=== PATIENT | male | born 1980 | race Caucasian/White ===

== ENCOUNTER 2016-10-31 19:29 | Emergency (ER) | payer BC ==
--- NOTE | 2016-10-31 19:35 | UC ---
Ear Complaint HPI - HPI Summary HPI Summary: 36 year old male presents with right ear pain and cerumen impaction. - History of Current Complaint Stated Complaint: RIGHT EAR COMPLAINT Time Seen by Provider: 10/31/16 19:34 - Allergies/Home Medications Allergies/Adverse Reactions: Allergies Allergy/AdvReac Type Severity Reaction Status Date / Time No Known Allergies Allergy Verified 10/31/16 19:43 PMH/Surg Hx/FS Hx/Imm Hx - Surgical History Surgical History: None - Social History Alcohol Use: None Substance Use Type: None Smoking Status (MU): Former Smoker When Did the Patient Quit Smoking/Using Tobacco: 9 YRS AGO Review of Systems Constitutional: Negative Skin: Negative Eyes: Negative ENT: Ear Ache Respiratory: Negative Cardiovascular: Negative Gastrointestinal: Negative Genitourinary: Negative Motor: Negative Neurovascular: Negative Musculoskeletal: Negative Neurological: Negative Psychological: Negative All Other Systems Reviewed And Are Negative: Yes Physical Exam Triage Information Reviewed: Yes Eye Exam: Normal ENT Exam: Normal ENT: Positive: Other: - right ear cerumen impaction right external ear canal erythema Dental Exam: Normal Neck exam: Normal Neck: Positive: 1 Respiratory Exam: Normal Cardiovascular Exam: Normal Abdominal Exam: Normal Musculoskeletal Exam: Normal Neurological Exam: Normal Psychological Exam: Normal Skin Exam: Normal Ear Complaint Course/Dx - Differential Dx/Diagnosis Provider Diagnoses: right ear cerumen impaction. right otitis externa Discharge - Discharge Plan Condition: Stable Disposition: HOME Prescriptions: Neomyc/Polym/HC 1% OTIC SUSP* [Cortisporin Otic Susp 1%*] 4 drop RIGHT EAR QID # 1 btl Patient Education Materials: Cerumen Impaction (ED), Earache (ED) Referrals: No Primary Care Phys,NOPCP [Primary Care Provider] -
== END 2016-10-31 20:03 | disposition home or self-care (01) ==
LOC: UCCORT 19:29
DX: H61.21 Impacted cerumen, right ear (principal); H60.8X1 Other otitis externa, right ear
CPT/HCPCS: 99213; G0463

== ENCOUNTER 2017-12-09 10:04 | Emergency (ER) | payer BC ==
[2017-12-09 10:49] VITALS: BP 135/82
--- NOTE | 2017-12-09 12:06 | UC ---
Lower Extremity/Ankle HPI - HPI Summary HPI Summary: PT NOTED SOME SORENESS TO THE FRONT OF HIS RIGHT ANKLE THIS AM WITH SOME TINGLING JUST BELOW THE SITE. HE HAS BEEN WEARING NEW WORKS BOOTS THAT ARE TIGHT OVER THE AREA. HE NOTES IT IS FEELING BETTER NOW THAT HE IS WEARING SNEAKERS. NO HX OF INJURY. ADMITS TO A CHRONIC RASH TO BOTH FEET THE COME AND GOES FOR YEARS BUT DENIES ANYTHING NEW OR DIFFERENT. - History of Current Complaint Chief Complaint: UCLowerExtremity Stated Complaint: RIGHT LEG CONCERN Time Seen by Provider: 12/09/17 12:00 Hx Obtained From: Patient Pain Intensity: 5 Aggravating Factor(s): Other - pressure over site Alleviating Factor(s): Nothing - removing boots captain waiter/waitress Able to Bear Weight: Yes - Allergies/Home Medications Allergies/Adverse Reactions: Allergies Allergy/AdvReac Type Severity Reaction Status Date / Time No Known Allergies Allergy Verified 12/09/17 10:46 PMH/Surg Hx/FS Hx/Imm Hx Previously Healthy: Yes - Surgical History Surgical History: None - Family History Known Family History: Positive: Diabetes - Social History Occupation: Employed Full-time Alcohol Use: None Substance Use Type: None Smoking Status (MU): Former Smoker When Did the Patient Quit Smoking/Using Tobacco: 11 YRS AGO - Immunization History Vaccination Up to Date: Yes Review of Systems Constitutional: Negative Skin: Rash - feet x years Eyes: Negative ENT: Negative Respiratory: Negative Cardiovascular: Negative Gastrointestinal: Negative Genitourinary: Negative Motor: Negative Neurovascular: Negative Musculoskeletal: Other: - discomfort R anterior ankle Neurological: Negative Psychological: Negative Is Patient Immunocompromised?: No All Other Systems Reviewed And Are Negative: Yes Physical Exam Triage Information Reviewed: Yes Appearance: Well-Appearing Vital Signs: Initial Vital Signs Temp 98.5 F 12/09/17 10:42 Pulse 84 12/09/17 10:42 Resp 14 12/09/17 10:42 BP 135/82 12/09/17 10:42 Pulse Ox 99 12/09/17 10:42 Vital Signs Reviewed: Yes Eyes: Positive: Conjunctiva Clear ENT: Positive: Normal ENT inspection Neck: Positive: Supple, Nontender, No Lymphadenopathy Respiratory: Positive: Lungs clear, Normal breath sounds Cardiovascular: Positive: RRR, No Murmur Abdomen Description: Positive: Nontender, No Organomegaly, Soft Bowel Sounds: Positive: Present Musculoskeletal: Positive: Other: - RLE: hip, knee, ankle have no gross deformity, swelling or discoloration. no tenderness to palpation. Skin Exam: Normal, Other - Both feet have a dry scaley rash and some areas that look to be healing excoriated vesicles. No drainage, deep erythema or warmth and non tender. Feet have full s/v/m functions. Lower Extremity Course/Dx - Course Course Of Treatment: Hx and exam supports soft tissue tenderness R anterior ankle from boots. Rash on feet raises concern for fungal infection and dyshydrotic eczema. since rash on/off x years will refer to dermatology and tx with lotrisone. no concern for bacterial infection. tingling in foot resolved since boot removed. - Differential Dx/Diagnosis Provider Diagnoses: Soft tissue tenderness R anterior ankle from boots. Chronic rash both feet. Discharge - Sign-Out/Discharge Documenting (check all that apply): Patient Departure All imaging exams completed and their final reports reviewed: No Studies - Discharge Plan Condition: Stable Disposition: HOME Prescriptions: Clotrimazole/Betamethasone* [Lotrisone Cream*] 1 applic TOPICAL BID 14 Days #1 tube Patient Education Materials: Athlete's Foot (ED), Dyshidrotic Eczema (ED) Forms: *Work Release Referrals: Mitchell Weathers MD [Medical Doctor] - As Soon As Possible Additional Instructions: LOOSEN THE LACE OF WORK BOOT OVER RIGHT FRONT ANKLE AND WEAR HEAVY COTTON SOCKS TO DECREASE PRESSURE OVER THE SITE FROM THE BOOT - Billing Disposition and Condition Condition: STABLE Disposition: Home
[2017-12-09] MEDS ORDERED: NS 0.9% 1000 ML* 1,000 ML IV ONE (12:41)
[2017-12-09] MEDS ORDERED: Ketorolac INJ* 30 MG/ML 1 ML VIAL IV PUSH ONE (12:42)
[2017-12-09] MEDS ORDERED: diPHENhydraMINE IV* 50 MG/ML 1 ml VIAL (BENADRYL) IV ONE (12:44)
== END 2017-12-09 12:41 | disposition home or self-care (01) ==
LOC: UCCORT 10:04
DX: L98.9 Disorder of the skin and subcutaneous tissue, unspecified (principal); X58.XXXA Exposure to other specified factors, initial encounter; Y93.01 Activity, walking, marching and hiking; Y92.9 Unspecified place or not applicable; Y99.0 Civilian activity done for income or pay; Z87.891 Personal history of nicotine dependence
CPT/HCPCS: 99212; G0463

== ENCOUNTER 2018-08-14 07:23 | Day surgery (SDC) | payer BC ==
[2018-08-14] MEDS ORDERED: Lidocaine 2% PF * 5 ML VIAL ONE (08:10)
[2018-08-14] MEDS ORDERED: Midazolam* 1 MG/ML 2 ML VIAL (2 MG) ONE ×2 (08:10→10:40)
[2018-08-14] MEDS ORDERED: Propofol* 10 MG/ML 20 ML BTL ONE (08:10)
[2018-08-14] MEDS ORDERED: fentaNYL* 50 MCG/ML 2 ML VIAL (100 MCG VIAL) ONE (08:10)
[2018-08-14] MEDS ORDERED: Propofol* 500 MG/50 ML BTL ONE (08:12)
[2018-08-14] MEDS ORDERED: ceFAZolin 2 GM PREMIX in ORs 2 GM/50 ML BAG IVPB ONE (10:19)
[2018-08-14] MEDS ORDERED: Bupivacaine 0.25% SDV PF* 10 ML VIAL INJ ONE (10:29)
[2018-08-14] MEDS ORDERED: fentaNYL* 50 MCG/ML 2 ML VIAL (100 MCG VIAL) IV PRN (10:50)
[2018-08-14] MEDS ORDERED: Metoclopramide IV* 5 MG/ML 2 ML VIAL IV PRN (10:50)
[2018-08-14] MEDS ORDERED: Naloxone* 0.4 MG/ML 1 ML VIAL IV PRN (10:50)
[2018-08-14] MEDS ORDERED: Ondansetron INJ* 2 MG/ML VIAL ONE (11:40)
[2018-08-14] MEDS ORDERED: Ibuprofen TAB* 600 MG ONE (12:13)
[2018-08-14 12:41] VITALS: BP 124/90
--- NOTE | 2018-08-14 21:11 | OP ---
DATE OF OPERATION: 08/14/18 [facility] DATE OF : 80 SURGEON: Aaron Ludwig MD SPINDLE MAKER: LAZARO Mays. An community relations assistant was needed for the procedure to aid in positioning of the arm and retraction. ANESTHESIOLOGIST: Dr. Ozuna. ANESTHESIA: Local MAC. PRE-OP DIAGNOSIS: Right thumb open distal phalanx fracture with significant nail bed injury. POST-OP DIAGNOSIS: Right thumb open distal phalanx fracture with significant nail bed injury. OPERATIVE PROCEDURE: 1. Irrigation and debridement of skin, subcutaneous tissue and bone, right thumb distal phalanx open fracture. 2. Open reduction and internal fixation with K-wires of the right thumb distal phalanx fracture. 3. Right thumb nail bed repair. INDICATIONS: Otilio had the injury that occurred at work when he was utilizing some steel tubing and it came down on the thumb. He was dressed in the ER. He worked to obtain Workers' Compensation approval for the surgery and he is now brought to the operating room. ESTIMATED BLOOD LOSS: 5 mL. COMPLICATIONS: None. FINDINGS: See above and below. DESCRIPTION OF PROCEDURE: Otilio was seen in the preoperative holding area. The correct site, side, and procedure were identified. We came back to the operating room where the arm was prepped and draped in the usual fashion and a time-out was performed. I had performed a digital block on the right thumb. A finger tourniquet was placed on the right thumb. I then began the procedure by removing the nail plate that was completely avulsed out. This was cleaned and set aside for possible reimplantation later. I then debrided a very large hematoma that was in the site of a very large dorsal nail bed injury through the sterile matrix. There was some injury to the germinal matrix as well. All that hematoma was debrided and the margins of the nail bed were trimmed back with a [place] blade to smooth healthy margins. I then was down to bone. I went ahead and used a curette and I debrided off the bone and removed any foreign material. I got everything back to nice clean healthy bone edges. I then soaked the thumb tip in Betadine bath for just a few minutes. I then irrigated out the wound copiously. At this point, all of the foreign material had been removed. The bone and the wound were looking clean. I first went ahead and reduced the bone and then I placed a 0.045 K-wire across the fracture site beginning from distal radial and exiting out proximally the ulnar aspect of the joint and crossing over the IP joint and then through the proximal phalanx as well. This held the fracture in excellent alignment. I then turned my attention to the nail bed. I could not tell how much injury there was to the germinal matrix. I went ahead and cut back skin flaps over the nail fold and reflected the nail fold out of the way. There was a small rent in the germinal matrix. This was repaired with one 6-0 plain gut fast absorbing suture. I then came down to my sterile matrix and repaired the sterile matrix with three 6- 0 plain gut fast absorbing sutures. This was all additionally secured with a couple of 4-0 nylon sutures starting distal out on the thumb tip and coming back over the nail bed proximally before being brought out the proximal aspect of the nail fold. This helped to secure the thumb in the neutral position as I wanted to sag distal and palmar and this augmented the fixation together with the K-wire. With the nail bed repaired, I went ahead and placed a piece of aluminum wrapper in the nail fold. This was secured with just a couple of 4-0 nylon sutures. At this point, everything was looking very nice. We dressed the thumb with Xeroform, 4x4s, 1-inch Abdiaziz, and then an AlumaFoam splint was placed on the thumb and was secured with Coban. The finger tourniquet was released during splint placement and the thumb tip pinked up immediately. He was taken to the recovery room in stable condition. [id number]/[facility] #: [id number] MERISSA
== END 2018-08-14 12:59 | disposition home or self-care (01) ==
LOC: OR 07:23
PROVIDERS: ATTEND Orthopaedic Surgery Hand Surgery
DX: S62.521B Displaced fracture of distal phalanx of right thumb, initial encounter for open fracture (principal); W23.0XXA Caught, crushed, jammed, or pinched between moving objects, initial encounter; Y92.69 Other specified industrial and construction area as the place of occurrence of the external cause; Y99.0 Civilian activity done for income or pay
CPT/HCPCS: A9270-GY; C1776; J0690; J2250; J2405; J2704; J3010; J3490